=== PATIENT | male | born 1950 ===

== ENCOUNTER → 2025-02-24 10:20 | Outpatient (REF) | payer MEDICARE, SELFPAY ==
[2025-02-24 10:58] LABS: Glucose 113 mg/dl (70-99)
== END ==
LOC: PET 10:20
PROVIDERS: Radiology Diagnostic Radiology; ATTENDING PHYSICIAN Nurse Practitioner Adult Health
DX: C83.30 Diffuse large B-cell lymphoma, unspecified site (principal); Z01.812 Encounter for preprocedural laboratory examination
CPT/HCPCS: 36415; 82947